=== PATIENT | male | born 1990 | race Caucasian/White ===

== ENCOUNTER 2020-06-07 13:18 | Emergency (ER) | payer SELFPAY ==
[~2020-06-07] VITALS: Ht 175.3 cm; Wt 118.8 kg
[2020-06-07 13:28] VITALS: Ht 175.3 cm; Wt 118.8 kg
[2020-06-07 15:03] VITALS: BP 133/67
== END 2020-06-07 15:03 | disposition home or self-care (01) ==
LOC: ED 13:18
DX: T78.3XXA Angioneurotic edema, initial encounter (principal); T78.40XA Allergy, unspecified, initial encounter; E78.00 Pure hypercholesterolemia, unspecified; X58.XXXA Exposure to other specified factors, initial encounter
CPT/HCPCS: J7512